=== PATIENT | female | born 2000 | race Caucasian/White ===

== ENCOUNTER 2018-07-29 08:41 | Emergency (ER) | payer MEDICAID ==
[2018-07-29 09:20] LABS: #Basophils 0.1 thou/uL (0.0-0.2); #Eosinphils 0.2 thou/uL (0.0-0.7); #Lymphocytes 2.4 thou/uL (1.20-3.40); #Monocytes 0.8 thou/uL (0.11-0.59); #Neutrophils 10.3 thou/uL (1.40-6.50); %Basophils 0.6 % (0.0-1.0); %Eosinophils 1.6 % (0.0-10.0); %Lymphocytes 17.7 % (28.0-48.0); %Monocytes 5.7 % (0.0-4.0); %Neutrophils 74.5 % (31.0-61.0); Hemoglobin 13.8 g/dL (12.0-16.0); Mean Corpuscular HGB CONC 30.7 g/dL (32.0-36.0); Mean Corpuscular Hemoglobin 28.4 pg (25.0-35.0); Mean Corpuscular Volume 92.5 fL (78.0-98.0); Mean Platelet Volume 7.2 fL (7.4-10.4); Platelet Count 385 thou/uL (130-400); Red Blood Cell (RBC) Count 4.87 mill/uL (4.00-5.20); White Blood Cell (WBC) Count 13.8 thou/uL (4.8-10.8)
[2018-07-29 09:35] LABS: ALT (SGPT) 30 U/L (8-55); AST (SGOT) 17 U/L (5-30); Albumin 4.1 g/dL (3.5-5.0); Alkaline Phosphatase 90 U/L (40-150); Anion Gap 17 mmol/L (10-20); BUN (Urea Nitrogen) 10 mg/dL (8.4-21.0); Bilirubin, Total 0.3 mg/dL (0.2-1.2); Calc. Creatinine Clearance 0 mL/min (70-130); Carbon Dioxide 28 mmol/L (22-29); Chloride 101 mmol/L (98-107); Estimated GFR-MDRD Greater than 90; Globulin 3.9 g/dL (2.4-3.5); Potassium 3.7 mmol/L (3.5-5.1); Sodium 142 mmol/L (136-145)
[2018-07-29 09:45] LABS: Glucose 29 mg/dL (70-105)
[2018-07-29 10:09] LABS: Bilirubin Negative (Negative); Blood, Urine Negative (Negative); Clarity Clear (Clear); Glucose, Urine (Dipstick) 100 mg/dL (Negative); Leukocyte Negative (Negative); Nitrite Negative (Negative); Protein, Urine (Dipstick) Negative (Neg-Trace); Urobilinogen 0.2 mg/dL (0.2-1.0)
[2018-07-29 10:10] LABS: Specific Gravity, Urine 1.005 (1.002-1.036)
[2018-07-29] MEDS ORDERED: Dextrose 5 % And 0.9 % NaCl 1,000 ML ONE (10:18)
[2018-07-29] MEDS ORDERED: Dextrose 50% Abboject 50 ML SYRINGE ONE (10:19)
--- NOTE | 2018-07-29 10:38 | RAD ---
PORTABLE UPRIGHT FRONTAL RADIOGRAPH CHEST: Date: 07/29/18 COMPARISON: None. HISTORY: Low blood sugar, history of diabetes, hypertension, cough. FINDINGS: Delaney rods overlie the imaged spine in the thoracic and lumbar regions. Body habitus and shallow inspiration limit detailed assessment. Cardiac silhouette is prominent, which may signify enlargemen t or magnification. No pneumothorax, pleural fluid, focal consolidation, or alveolar edema. Mild pulm onary vascular congestion. IMPRESSION: Pulmonary vascular congestion. No lobar consolidation or alveolar edema. POS: NITIN
== END 2018-07-29 11:42 | disposition short-term general hospital (02) ==
LOC: MADERS 08:41
DX: E11.649 Type 2 diabetes mellitus with hypoglycemia without coma (principal); I10 Essential (primary) hypertension; Z79.4 Long term (current) use of insulin; Z79.899 Other long term (current) drug therapy
CPT/HCPCS: 36416; 71045; 80053; 81003; 83605; 85025; 87077; 87086; 93005; 96361; 96374; J7042